=== PATIENT | female | born 1960 ===

== ENCOUNTER 2019-04-18 07:26 | Emergency (ER) | payer BC ==
--- NOTE | 2019-04-18 07:38 | UC ---
General HPI - HPI Summary HPI Summary: 59 yo female felt eye crusty irritation last night, but woke up this am with eye crusted over. No fever /chillls. chills. No n/v/d. No cough / sob / cp. No rash. No ear pain / sinus pain. Does not wear contact lenses. Other - c/o vag d/c, local burning with urination. Used 3 day monostat, but didn't help, even worse. [place] town. Plans to go back home this week. Other - 2 weeks ago completed abx and prednisone d/t bad poison leslie. These sx are improved. ] Eats yogurt daily. - History of Current Complaint Stated Complaint: EYE COMPLAINT/ PERSONAL Time Seen by Provider: 04/18/19 07:37 Hx Obtained From: Patient - Allergy/Home Medications Allergies/Adverse Reactions: Allergies Allergy/AdvReac Type Severity Reaction Status Date / Time No Known Allergies Allergy Verified 04/18/19 07:43 Home Medications: Home Medications Levothyroxine TAB* [Synthroid 25 MCG TAB*] 25 mcg PO DAILY MDD 25mcg 04/18/19 [ History Confirmed 04/18/19] PMH/Surg Hx/FS Hx/Imm Hx Previously Healthy: Yes - Family History Known Family History: Positive: Hypertension Review of Systems All Other Systems Reviewed And Are Negative: Yes Constitutional: Positive: Negative Skin: Positive: Other - see hpi Eyes: Positive: Other - see hpi ENT: Positive: Other - see hpi Respiratory: Positive: Negative Cardiovascular: Positive: Negative Gastrointestinal: Positive: Negative, Other - see hpi Genitourinary: Positive: Other - see hpi Motor: Positive: Negative Neurovascular: Positive: Negative Musculoskeletal: Positive: Negative Neurological: Positive: Negative Psychological: Positive: Negative Is Patient Immunocompromised?: No Course/Dx - Course Course Of Treatment: Nl female genitalia. + inflamed Labia. No gerson sores. Vag vault normal with the exception of large white milky vag d/c. Some yellowish too. Cervix mild red, nontender. No adnexal tenderess. Declines gc/ chlamydia. Will send affirm. Will rx for bv and yeast vaginitis. See avs. Questions as posed answered to the best of my ability. re eyes - likely allergic and / or early viral (TM's mahmood rtxd). However, will start vigamox gtt, f/u pcp. Consider ulcer but doubt. - Diagnoses Provider Diagnosis: Conjunctivitis, Vaginitis and vulvovaginitis Discharge - Sign-Out/Discharge Documenting (check all that apply): Patient Departure All imaging exams completed and their final reports reviewed: No Studies - Discharge Plan Condition: Stable Disposition: HOME Prescriptions: Ciprofloxacin 0.3% OPTH.JAIMIE* [Cipro 0.3% Opth*] 2 drop BOTH EYES Q8H 5 Days #1 btl Fluconazole 150 MG TAB* [Diflucan 150 MG TAB*] 150 mg PO DAILY #7 tablet metroNIDAZOLE VAGINAL 0.75%* 1 applic VAGINAL BEDTIME 7 Days #1 tube Patient Education Materials: Bacterial Vaginosis (ED), Yeast Infection (ED), Conjunctivitis (ED) Referrals: No Primary Care Phys,NOPCP [Primary Care Provider] - Additional Instructions: Eat yogurt daily. consider additional probiotic. - you may need to do this for the next 2 weeks. Bact vaginosis medication x 7 days. Diflucan by mouth. You may need to have blood work (liver tests) when complete - check with your primary care physician. Consider Vagisil (over the counter) for extreme pain, jerry prior to urination. Meanwhile, for 3 days - twice daily - 50/50 over the counter clotrimazole 1% cream / hydrocortisone 1 cream. Apply thin layer to affected area. Follow up with your primary care physician in your home town , per routine. Seek medical attention for worse or new problems in the meantime. Hydrate. - Billing Disposition and Condition Condition: STABLE Disposition: Home
== END 2019-04-18 08:39 | disposition home or self-care (01) ==
LOC: UCEAST 07:26
DX: H10.9 Unspecified conjunctivitis (principal); N76.0 Acute vaginitis
CPT/HCPCS: 87480; 87510; 99202; G0463

== ENCOUNTER 2019-09-22 21:43 | Emergency (ER) | payer BC ==
--- NOTE | 2019-09-22 21:46 | UC ---
Back Pain HPI - HPI Summary HPI Summary: 59 yo female presents with back pain. She tells me that this morning she woke up and noticed some left mid back discomfort that is hard for her to describe. Hurts to lay down and cannot find a comfortable position. Irritating and slightly burning. She took a joss "back and body" and felt better, but the pain returned later. She has had shingles in the past at her low back and states this discomfort feels very similar. She denies injury, SOB, chest pain, abdominal pain, n/v/d/c, dysuria, hematuria. No hx of kidney stones. No recent illness. - History of Current Complaint Stated Complaint: BACK PAIN Time Seen by Provider: 09/22/19 21:45 Hx Obtained From: Patient Onset/Duration: Sudden Onset Timing: Constant Severity Initially: Mild Severity Currently: Mild Pain Intensity: 4 Pain Scale Used: 0-10 Numeric - Allergies/Home Medications Allergies/Adverse Reactions: Allergies Allergy/AdvReac Type Severity Reaction Status Date / Time No Known Allergies Allergy Verified 09/22/19 21:54 Home Medications: Home Medications Aspirin/Caffeine [Joss Back & Body Pain Ex] 2 tab PO ONCE PRN 09/22/19 [ History Confirmed 09/22/19] PMH/Surg Hx/FS Hx/Imm Hx Endocrine History: Hypothyroidism - Surgical History Surgical History: None - Family History Known Family History: Positive: Hypertension - Social History Occupation: Employed Full-time Lives: With Family Alcohol Use: Occasionally Substance Use Type: None Smoking Status (MU): Never Smoked Tobacco Review of Systems All Other Systems Reviewed And Are Negative: No Constitutional: Positive: Negative Skin: Positive: Negative Respiratory: Positive: Negative Cardiovascular: Positive: Negative Musculoskeletal: Positive: Other: - Back pain Neurological: Positive: Negative Psychological: Positive: Negative Physical Exam - Summary Physical Exam Summary: GENERAL: NAD. WDWN. No pain distress. SKIN: No rashes, sores, lesions, or open wounds. NECK: Supple. FROM. Nontender. No lymphadenopathy. CHEST: CTAB. No r/r/w. No accessory muscle use. Breathing comfortably and in no distress. CV: RRR. Pulses intact. Cap refill <2seconds ABD: NTTP. Soft. No CVA tenderness. MSK: LEFT MID BACK JUST BELOW SCAPULA: NTTP. No reproduction of discomfort with UE movement or truncal twisting. Strength 5/5 B/L UEs. NEURO: Alert. Normal gait. PSYCH: Age appropriate behavior. Triage Information Reviewed: Yes Vital Signs: Vital Signs: Temp Pulse Resp BP Pulse Ox 97 F 64 16 144/73 97 09/22/19 21:47 09/22/19 21:47 09/22/19 21:47 09/22/19 21:47 09/22/19 21:47 Laboratory Tests 09/22/19 22:01 POC Urine Color Yellow POC Urine Clarity Clear POC Urine pH 6.5 POC Ur Specif Vest 1.025 POC Urine Protein Negative POC Ur Glucose (UA) Negative POC Urine Ketones Negative POC Urine Blood 2+ A POC Urine Nitrite Negative POC Urine Bilirubin Negative POC Urine Urobilinogen 0.2 POC U Leukocyte Esteras 1+ A Vital Signs Reviewed: Yes Back Pain Course/Dx - Course Course Of Treatment: UA as above. - Leuks presents, but she is having no urinary symptoms - thus UTI unlikely. Will send for urine culture. - She does have blood in her urine which makes kidney stone an increased likelihood, but her pain seems to be higher than the level of kidney. I discussed going to the ED this evening for further eval for a kidney stone, but she did not want to do this. - Given pt's history of shingles and this discomfort feeling similar makes this most likely. Discussed shingles vs kidney stone. Pt states she wishes to f/u with her PCP tomorrow. She was given toradol IM in the clinic for her discomfort. Advised that if her symptoms worsen or if she develops new symptoms to go to the ED - pt voiced understanding and agrees with the plan. - Differential Dx/Diagnosis Provider Diagnosis: Left-sided back pain Discharge ED - Sign-Out/Discharge Documenting (check all that apply): Patient Departure All imaging exams completed and their final reports reviewed: No Studies - Discharge Plan Condition: Stable Disposition: HOME Patient Education Materials: Kidney Stones (ED), Shingles (ED) Referrals: No Primary Care Phys,NOPCP [Medical Doctor] - Additional Instructions: You had some blood in your urine dip this evening. Your pain seems most related to possible shingles, but also could be a kidney stone given the blood in your urine. You have never had a kidney stone before and are not having any urinary symptoms - thus I believe shingles is most likely at this time. If your pain worsens or if you develop new symptoms - please go to the ER for a scan of that area for further evaluation. Please be rechecked by your primary doctor this week - Billing Disposition and Condition Condition: STABLE Disposition: Home
[2019-09-22 21:54] VITALS: BP 144/73
[2019-09-22] MEDS ORDERED: Ketorolac *IM* INJ* 60 MG/2 ML VIAL IM ONE (22:12)
== END 2019-09-22 22:27 | disposition home or self-care (01) ==
LOC: UCEAST 21:43
DX: M54.9 Dorsalgia, unspecified (principal)
CPT/HCPCS: 81003; 87086; 96372; 99211; G0463; J1885